=== PATIENT | female | born 1995 | race African-American/Black ===

== ENCOUNTER 2018-04-20 09:05 | Emergency (ER) | payer SELFPAY ==
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
[2018-04-20] MEDS ORDERED: ACETAMINOPHEN 500 MG TABLET (FP) PO ONE (09:32)
[2018-04-20] MEDS ORDERED: ACETAMINOPHEN 500 MG TABLET (FP) ONE (09:46)
[2018-04-20 09:56] VITALS: BP 122/73; PULSE 66; TEMP 98.6; BMI 25.7
== END 2018-04-20 11:55 | disposition home or self-care (01) ==
LOC: FER 09:05
DX: S13.4XXA Sprain of ligaments of cervical spine, initial encounter (principal); V43.52XA Car driver injured in collision with other type car in traffic accident, initial encounter; Y93.89 Activity, other specified; Y92.410 Unspecified street and highway as the place of occurrence of the external cause
CPT/HCPCS: 72050-TC-FY; 84703; 99284-25